=== PATIENT | female | born 2005 | race African-American/Black ===

== ENCOUNTER 2024-12-17 10:56 | Emergency (ER) | payer OTHER, SELFPAY ==
[2024-12-17 11:00] VITALS: BP 104/74
[2024-12-17 11:15] LABS: Hematocrit 34.8 % (37.0-47.0); Hemoglobin 11.5 g/dL (12.0-16.0); Mean Corp Hgb Conc. 33.0 g/dL (33.0-37.0); Mean Corpuscular Volume 89.2 fL (81.0-99.0); Nucleated Red Blood Cells % 0 %; Platelet Count 261 10^3/uL (130-400); Red Cell Dist. Width 13.4 % (11.5-14.5)
[2024-12-17 11:30] LABS: ALT (SGPT) < 10 U/L (0-35); AST (SGOT) 16 U/L (14-36); Albumin 4.0 g/dl (3.5-5.0); Alkaline Phosphatase 41 U/L (38-126); Blood Urea Nitrogen 13 mg/dl (7-17); Calcium 9.3 mg/dl (8.4-10.2); Carbon Dioxide 25 mmol/L (22-30); Chloride 108 mmol/L (98-107); Glucose 89 mg/dl (70-99); Potassium 4.2 mmol/L (3.5-5.1); Sodium 138 mmol/L (135-145); Total Protein 6.9 g/dl (6.3-8.2); eGFR > 60.00
--- NOTE | 2024-12-17 12:57 | ED.GENMED ---
History of Present Illness
General
Chief Complaint: Breathing Problem
Source: patient
Exam Limitations: none
Time Seen by Provider: 12/17/24 12:56
History of Present Illness
History of Present Illness:
19yoF with a history of vaping presenting for evaluation of right rib pain. Symptoms initially started a few days ago. She was sitting up in bed to drink some water when she felt a sharp pain in her right lateral ribcage. The pain seemed to get
better but worsened again this morning. Pain is worse with movement and deep breathing. Tylenol does provide some relief. She denies any direct trauma. Patient also reports losing about 15 pounds within the past 3 weeks unintentionally. She
recently started a new job and has been running around a lot but does not think this is the cause of her weight loss. She is otherwise asymptomatic and denies any fevers, night sweats, cough, vomiting, diarrhea, leg swelling, calf pain. No recent
travel and she does not take oral contraceptives.
Past History
Social History
Tobacco: Vaping (Nicotine)
Alcohol: None
Phy Exam
General Physical Exam
General Presentation: well appearing and no apparent distress
General Skin: warm and dry
General Habitus: normal
General Mental: alert
ENT Exam
ENT Exam: normocephalic
Cardiovascular Exam
Cardiovascular Exam: regular rate/rhythm and no edema
Pulmonary Exam
Pulmonary Exam: lungs clear, no respiratory distress, no rales, no crackles, no rhonchi, no wheezing and other (+R lateral chest wall tenderness. No crepitus or skin changes. Breath sounds clear.)
Gastrointestinal Exam
Gastrointestinal Exam: non tender, soft and non distended
Neurological Exam
Neurological Exam: alert
Phillip Coma Scale
Eye Opening: Spontaneous
Verbal Response: Oriented
Motor Response: Obeys Commands
GCS Total Score: 15
Skin Exam
Skin Exam: normal color and warm/dry
Psychiatric Exam
Psychiatric Exam: normal mood/affect
Scores
PE Wells Score
Symptoms of DVT: No
No alternative diagnosis better explains the illness: No
Tachycardia with pulse > 100: No
Immobilization (>=3 days) or surgery within previous 4 weeks: No
Prior history of DVT or pulmonary embolism: No
Presence of hemoptysis: No
Presence of malignancy: No
Pulmonary Embolism Risk Score: 0
Probability of PE: Pt is low risk
PERC Rule Criteria
Age <50 years: Yes
HR <100 bpm: Yes
Room air oxygen sat >94%: Yes
History of DVT or PE: No
Recent trauma or surgery: No
Hemoptysis: No
Exogenous estrogen: No
Clinical signs suggestive of DVT: No
: No
Considered low risk for PE: Yes
PERC Score: 0
PE can be excluded by PERC: Yes
Course
Orders/Labs/Results
Orders:
Orders
12/17/24 11:00
Chest [CR Chest - 2 Views ] Urgent
Comment:
Reason For Exam: right right pain
12/17/24 11:07
Complete Blood Count/With Diff Urgent
Comprehensive Metabolic Panel Urgent
HCG, Serum Qualitative Screen Urgent
TSH Urgent
Comment: ADD
12/17/24 12:30
Add On- LAB Urgent
Tests Added?: TSH
Add On- LAB Urgent
Tests Added?: qualitative HCG
Abnormal Lab Results
12/17/24
11:07
RBC 3.90 L 10^6/uL
(4.20-5.40)
Hgb 11.5 L g/dL
(12.0-16.0)
Hct 34.8 L %
(37.0-47.0)
Absolute Monos (auto) 0.8 H 10^3/uL
(0.1-0.6)
Chloride 108 H mmol/L
(98-107)
12/17/24 11:07
12/17/24 11:07
Vital Signs
Initial and Last Documented VS:
Initial Vital Signs
Temp Pulse Resp BP Pulse Ox
98.3 F 62 18 104/74 98
12/17/24 11:00 12/17/24 11:00 12/17/24 11:00 12/17/24 11:00 12/17/24 11:00
Last Documented Vital Signs
Temp Pulse Resp BP Pulse Ox
97.7 F 56 16 104/68 98
12/17/24 12:59 12/17/24 12:59 12/17/24 12:59 12/17/24 12:59 12/17/24 12:59
MDM/Problems Addressed
Differential Diagnosis Includes:
19yoF here with R rib pain x a few days. No trauma. Pain is worse with movement and breathing. There is reproducible chest wall tenderness on exam. Lungs clear to auscultation and oxygen saturation 98% on room air. Differential diagnosis includes
but is not limited too: musculoskeletal, pleurisy, pneumonia, doubt pneumothorax
Workup obtained in triage. Labs unremarkable and CXR is clear. Patient is low risk according to Wells criteria and PERC negative, PE is clinically ruled out. Presentation consistent with musculoskeletal pain. She was also reporting some weight loss
and TSH added. Patient does not want to wait for TSH results so will discharge and call patient if this comes back abnormal. Supportive care discussed. Advised close f/u with PCP. Patient discharged in stable condition.
*Pulse Oximetry
SaO2: 98
Oxygen Mode of Delivery: Room air
Patient hypoxic: no (98%)
*Critical Care Note
Total Time (30-74mins, 75-104mins- exclusive of procedures): Not Applicable
Update Note
Update Note:
TSH resulted after discharge and is within normal limits.
ED Attending Note
-
Portions of this chart may have been created with voice recognition software.� Occasional wrong word or��sound alike� substitutions may have occurred due to the inherent limitations of voice recognition software.
Discharge Plan
Departure
Patient Disposition: Home (Routine Discharge)
Date of Disposition: 12/17/24
Time of Disposition: 13:23
Patient with high blood pressure during this ER visit?: No
Discharge Problem:
Right-sided chest wall pain
Instructions: Costochondritis
Prescriptions:
No Action
iron-vit C-vit [id number] acid [Iron 100 Plus] 1 EACH tablet
100 mg PO DAILY
Referrals:
Billy Barker MD [Family Provider, Family Practice]
Activity Restrictions/Additional Instructions:
Take Tylenol and ibuprofen as needed for pain. Apply heat to affected area.
Please follow-up with your family doctor next week. Return to the ER with any new or worsening symptoms.
Interventions
Interventions:
*Risk Screen - Suicide Last Done: 12/17/24 11:00
*General Assessment Last Done: 12/17/24 11:00
*Neglect/Abuse Screening Last Done: 12/17/24 11:00
*ED- Fall Risk Assessment Last Done: 12/17/24 11:00
*ED COVID-19 Vaccine History Last Done: 12/17/24 11:00
*Nursing Disposition Last Done: 12/17/24 14:31
Discharge Date and Time
Discharge Date/Time: 12/17/24 14:32
Print Language: POLISH
[2024-12-17 12:59] VITALS: BP 104/68
[2024-12-17 13:37] LABS: HCG, Serum Qualitative Screen Negative
[2024-12-17 14:10] LABS: TSH 2.07 uIU/ml (0.47-4.68)
== END 2024-12-17 14:32 | disposition home or self-care (01) ==
LOC: EMR 10:56
PROVIDERS: EMERGENCY PHYSICIAN Student in an Organized Health Care Education/Training Program; FAMILY PHYSICIAN Family Medicine
DX: R07.89 Other chest pain (principal)
CPT/HCPCS: 99284; 71046; 80053; 84443; 84703; 85025